=== PATIENT | female | born 1980 | race Caucasian/White ===

== ENCOUNTER 2016-08-09 13:05 | Emergency (ER) | payer BC ==
[2016-08-09 13:40] VITALS: BP 105/73
--- NOTE | 2016-08-09 14:12 | UC ---
Throat Pain/Nasal Juan HPI - HPI Summary HPI Summary: Nasal congestion, diffuse sinus pain, R ear pain worsening through last night, elevated temperature starting 2 days ago. 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 Has school-aged kids at home. - History of Current Complaint Chief Complaint: UCGeneralIllness Stated Complaint: SINUS AND EAR PAIN Time Seen by Provider: 08/09/16 13:46 Hx Obtained From: Patient Hx Last Menstrual Period: 08/06/16 ?: No Onset/Duration: Gradual Onset, Lasting Days Severity: Moderate Associated Signs & Symptoms: Positive: Sinus Discomfort, Nasal Discharge, Fever. Negative: Wheezing, Hoarseness - Allergies/Home Medications Allergies/Adverse Reactions: Allergies Allergy/AdvReac Type Severity Reaction Status Date / Time Amoxicillin Allergy Intermediate Rash And Verified 08/09/16 13:41 Itching Home Medications: Home Medications Ginkgo Biloba (NF) [Ginkgo Biloba Extract (NF)] 1 tab PO DAILY 08/09/16 [ History Confirmed 08/09/16] PMH/Surg Hx/FS Hx/Imm Hx - Surgical History Surgical History: None - Family History Known Family History: Negative: Blood Disorder - Social History Occupation: Employed Full-time Lives: With Family Alcohol Use: Occasionally Substance Use Type: None Smoking Status (MU): Light Every Day Tobacco Smoker Type: Cigarettes Amount Used/How Often: 10 cig. day - Immunization History Most Recent Influenza Vaccination: 03/2016 Review of Systems Constitutional: Fever, Chills, Fatigue Skin: Negative Eyes: Negative ENT: Sore Throat, Ear Ache, Nasal Discharge Respiratory: Negative Cardiovascular: Negative Gastrointestinal: Negative Genitourinary: Negative Motor: Negative Neurovascular: Negative Musculoskeletal: Negative Neurological: Negative Psychological: Negative All Other Systems Reviewed And Are Negative: Yes Physical Exam Triage Information Reviewed: Yes Appearance: Well-Appearing, No Pain Distress, Well-Nourished Vital Signs: Initial Vital Signs Temp 100.7 F 08/09/16 13:34 Pulse 77 08/09/16 13:34 Resp 16 08/09/16 13:34 BP 105/73 08/09/16 13:34 Pulse Ox 99 08/09/16 13:34 Vital Signs Reviewed: Yes Eye Exam: Normal Eyes: Positive: Conjunctiva Clear ENT: Positive: Pharyngeal erythema - slight, Nasal congestion, TMs normal - clear fluid with bubbles noted behind R TM. Negative: TM bulging, TM dull, TM red, Tonsillar exudate Dental Exam: Normal Dental: Negative: Percussion Tenderness @, Gross Decay/Caries @, Dental Fracture @, Abscess @ Neck exam: Normal Neck: Positive: Supple, Nontender Respiratory Exam: Normal Respiratory: Positive: Chest non-tender, Lungs clear, Normal breath sounds, No respiratory distress, No accessory muscle use Cardiovascular Exam: Normal Cardiovascular: Positive: RRR, No Murmur Musculoskeletal Exam: Normal Neurological Exam: Normal Psychological Exam: Normal Skin Exam: Normal Throat Pain/Nasal Course/Dx - Differential Dx/Diagnosis Provider Diagnoses: URI, likely viral. R otalgia Discharge - Discharge Plan Condition: Stable Disposition: HOME Patient Education Materials: Upper Respiratory Infection (ED) Forms: *Work Release Referrals: Nohemi Mora NP [Primary Care Provider] - Additional Instructions: Rapid strep negative. As we discussed, your ear showed fluid, which is a common symptom with respiratory viruses and only resolves with time. There is absolutely no indication of bacterial infection, so antibiotics would only have the potential to make you sicker. Bacterial sinusitis is uncommon, and with such diffuse symptoms we would only start to consider it after 7-10 days of illness. Influenza is a likely cause of your symptoms (given your fever), so it is very important you not go back to work until you are fever-free without medications. Call or return if you develop increasing fever, shortness of breath, chest pain , bloody sputum, or otherwise worsen. If you have not improved at all after several days, contact your primary care physician or return here.
== END 2016-08-09 14:54 | disposition home or self-care (01) ==
LOC: UCEAST 13:05
DX: J06.9 Acute upper respiratory infection, unspecified (principal); H92.01 Otalgia, right ear; Z88.0 Allergy status to penicillin; F17.210 Nicotine dependence, cigarettes, uncomplicated
CPT/HCPCS: 87502; 87651; 99211; G0463

== ENCOUNTER 2016-10-05 04:53 | Emergency (ER) | payer BC ==
[2016-10-05] MEDS ORDERED: Penicillin VK TAB* 250 MG PO ONE (05:17)
[2016-10-05] MEDS ORDERED: Ibuprofen TAB* 400 MG PO ONE (05:19)
[2016-10-05 05:30] VITALS: BP 102/70
--- NOTE | 2016-10-13 21:53 | ED ---
Myrna Estrella Claudia, scribed for Lisa Mathew MD on 10/05/16 at 0525 . Throat Pain/Nasal Congestion - HPI Summary HPI Summary: 35 year old female presents to the Ed with dental pain. Pt notes that she has been taking left over penicillin for the infection until she is able to see the dentist on Saturday. The pt notes that the pain is alleviated with Motrin. She denies any other Sx including fever and chills. - History of Current Complaint Chief Complaint: EDDentalPain Time Seen by Provider: 10/05/16 05:08 Hx Obtained From: Patient Onset/Duration: Sudden Onset, Lasting Hours, Still Present - Allergies/Home Medications Allergies/Adverse Reactions: Allergies Allergy/AdvReac Type Severity Reaction Status Date / Time No Known Allergies Allergy Verified 10/07/16 07:55 PMH/Surg Hx/FS Hx/Imm Hx Previously Healthy: Yes Endocrine/Hematology History: Denies: Hx Diabetes Infectious Disease History: No Infectious Disease History: Denies: History Other Infectious Disease, Traveled Outside the in Last 30 Days - Family History Known Family History: Positive: Hypertension Negative: Blood Disorder - Social History Occupation: Employed Full-time Lives: With Family Alcohol Use: Occasionally Substance Use Type: Reports: None Smoking Status (MU): Light Every Day Tobacco Smoker Type: Cigarettes Amount Used/How Often: 10 cig. day Review of Systems Constitutional: Negative Negative: Fever, Chills Eyes: Negative Positive: Dental Pain - right lower tooth Cardiovascular: Negative Respiratory: Negative Gastrointestinal: Negative Genitourinary: Negative Musculoskeletal: Negative Skin: Negative Neurological: Negative Psychological: Normal All Other Systems Reviewed And Are Negative: Yes Physical Exam Triage Information Reviewed: Yes Vital Signs On Initial Exam: Initial Vitals Temp Pulse Resp BP Pulse Ox 97.5 F 95 18 111/71 100 10/05/16 04:56 10/05/16 04:56 10/05/16 04:56 10/05/16 04:56 10/05/16 04:56 Vital Signs Reviewed: Yes Appearance: Positive: Well-Appearing, No Pain Distress Skin: Positive: Warm, Skin Color Reflects Adequate Perfusion, Dry Eyes: Positive: EOMI, MAHAMED ENT: Positive: Pharynx normal, TMs normal Dental: Positive: Other - mild mucal swelling over tooth numbr 20. Neck: Positive: Supple, Nontender Respiratory/Lung Sounds: Positive: Clear to Auscultation, Breath Sounds Present. Negative: Rales, Rhonchi, Wheezes Cardiovascular: Positive: RRR. Negative: Murmur, Leg Edema Left, Leg Edema Right Abdomen Description: Positive: Nontender, Soft Musculoskeletal: Positive: Strength/ROM Intact Neurological: Positive: Sensory/Motor Intact, Alert, Oriented to Person Place, Time, CN Intact II-III Psychiatric: Positive: Affect/Mood Appropriate Diagnostics - Vital Signs Vital Signs Temp Pulse Resp BP Pulse Ox 10/05/16 04:56 97.5 F 95 18 111/71 100 - Laboratory Lab Statement: Any lab studies that have been ordered have been reviewed, and results considered in the medical decision making process. EENT Course/Dx - Diagnoses Provider Diagnoses: Pain, dental Discharge - Discharge Plan Condition: Stable Disposition: HOME Patient Education Materials: Toothache (ED) Forms: *Work Release Referrals: Nhoemi Mora NP [Primary Care Provider] - Additional Instructions: Please follow-up with your Dentist on Saturday The documentation as recorded by the Myrna thomas Claudia accurately reflects the service I personally performed and the decisions made by me, Lisa Mathew MD.
== END 2016-10-05 05:29 | disposition home or self-care (01) ==
LOC: ED 04:53
DX: K08.89 Other specified disorders of teeth and supporting structures (principal); F17.210 Nicotine dependence, cigarettes, uncomplicated
CPT/HCPCS: 99282; A9270-GY

== ENCOUNTER 2016-10-07 07:08 | Emergency (ER) | payer BC ==
[2016-10-07 07:16] VITALS: BP 117/90
[2016-10-07] MEDS ORDERED: Clindamycin CAP* 150 MG PO ONE (07:47)
--- NOTE | 2016-10-07 08:07 | ED ---
Throat Pain/Nasal Congestion - HPI Summary HPI Summary: Pt here w/ continued dental pain, jaw pain radiating into ear and gingival swelling around #30. Was seen 2 days ago regarding this same tooth and pain. Pain started Saturday - she called her dentist Saturday but unfortunately they were closed until Saturday (tomorrow). She was seen here Saturday after taking some Pen VK she had leftover at home w/o relief. Was found to have swelling about her tooth and provided with more Pen VK. Ibuprofen 800mg helps pain however she' s been nervous about taking so much of this. Drinking lots of water - no eating much as chewing hurts when tooth comes against pressure. She's had work done on this tooth in the past - has amalgom in place. Would like to switch anbx - does not want medication nor injection for pain. Denies fever, chills, N/V/D, trouble breathing/swallowing, foul taste in her mouth, facial swelling. - History of Current Complaint Chief Complaint: EDDentalPain Time Seen by Provider: 10/07/16 07:30 Hx Obtained From: Patient - Allergies/Home Medications Allergies/Adverse Reactions: Allergies Allergy/AdvReac Type Severity Reaction Status Date / Time No Known Allergies Allergy Verified 10/07/16 07:55 PMH/Surg Hx/FS Hx/Imm Hx Previously Healthy: No - dental pain in #30 Endocrine/Hematology History: Denies: Autoimmune Disease Infectious Disease History: No Infectious Disease History: Denies: Hx Clostridium Difficile, History Other Infectious Disease, Traveled Outside the [place] in Last 30 Days - Family History Known Family History: Positive: None Negative: Blood Disorder - Social History Occupation: Employed Part-time, Student - nursing Lives: With Family Alcohol Use: None Hx Substance Use: No Substance Use Type: Reports: None Smoking Status (MU): Current Every Day Smoker Type: Cigarettes Amount Used/How Often: 10 cig. day Review of Systems Negative: Fever, Chills Positive: Dental Pain, Ear Ache. Negative: Sore Throat, Nasal Discharge Negative: Chest Pain Negative: Shortness Of Breath, Cough Gastrointestinal: Negative Positive: no symptoms reported Musculoskeletal: Other - jaw pain - no pain w/ depression or elevation of mandible Negative: Rash Neurological: Negative Psychological: Normal All Other Systems Reviewed And Are Negative: Yes Physical Exam Triage Information Reviewed: Yes Vital Signs On Initial Exam: Initial Vitals Temp Pulse Resp BP Pulse Ox 97 F 92 15 117/90 100 10/07/16 07:11 10/07/16 07:11 10/07/16 07:11 10/07/16 07:11 10/07/16 07:11 Vital Signs Reviewed: Yes Appearance: Positive: Well-Appearing, No Pain Distress, Well-Nourished Skin: Positive: Warm, Dry - no facial edema/erythema Head/Face: Positive: Normal Head/Face Inspection - NTTP Eyes: Positive: Normal, EOMI, Conjunctiva Clear. Negative: Conjunctiva Inflammed, Discharge ENT: Positive: Normal ENT inspection, Hearing grossly normal, Pharynx normal, TMs normal. Negative: Nasal congestion, Nasal drainage Dental: Positive: Other - #30 majority amalgom filled - mild gingival erythema and edema along the buccal aspect which is TTP - no fluctuance, no pustules, no d/c Neck: Positive: Supple, No Lymphadenopathy, Tenderness @ - Rt side of neck w/ mild TTP Respiratory/Lung Sounds: Positive: Clear to Auscultation, Breath Sounds Present , Stridor Cardiovascular: Positive: Normal, RRR Abdomen Description: Positive: Soft Musculoskeletal: Positive: Normal, Strength/ROM Intact Neurological: Positive: Normal, Sensory/Motor Intact, Alert, Oriented to Person Place, Time, CN Intact II-III Psychiatric: Positive: Normal Diagnostics - Vital Signs Vital Signs Temp Pulse Resp BP Pulse Ox 10/07/16 07:11 97 F 92 15 117/90 100 - Laboratory Lab Statement: Any lab studies that have been ordered have been reviewed, and results considered in the medical decision making process. EENT Course/Dx - Course Course Of Treatment: Dental pain and swelling w/o improvement since taking PCN for 4 days. Would like to switch to a different anbx as she's not sure when she will be able to get in to see her dentist. Switched to clindamycin and advised to f/u w/ dentist as planned. Return if danger s/sx present. - Diagnoses Provider Diagnoses: Dental abscess Discharge - Discharge Plan Condition: Stable Disposition: HOME Prescriptions: Clindamycin CAP* [Cleocin 150 MG CAP*] 300 mg PO QID #39 cap Patient Education Materials: Dental Abscess (ED) Referrals: Nohemi Mora NP [Primary Care Provider] - Additional Instructions: Stop penicillin Start clindamycin Continue ibuprofen with food for pain Try to get nutrition through broth, smoothies, etc Follow-up with dentist tomorrow *If you develop fever, chills, vomiting, facial swelling or difficulty breathing or swallowing, return to ED
== END 2016-10-07 08:08 | disposition home or self-care (01) ==
LOC: ED 07:08
DX: K04.7 Periapical abscess without sinus (principal); K08.89 Other specified disorders of teeth and supporting structures; H92.09 Otalgia, unspecified ear; F17.210 Nicotine dependence, cigarettes, uncomplicated
CPT/HCPCS: 99281; A9270-GY

== ENCOUNTER 2016-11-02 21:55 | Emergency (ER) | payer BC ==
[2016-11-03 00:03] VITALS: BP 103/68
--- NOTE | 2017-01-04 09:23 | ED ---
Skin Complaint - HPI Summary HPI Summary: Patient suffered a tick bite 2 weeks ago and the area is hard and painful. She has been on antibiotics for dental infection. No drainage, swelling or red streaking. - History of Current Complaint Chief Complaint: EDRashSkinAbscess Time Seen by Provider: 11/02/16 23:16 Stated Complaint: TICK BITE Hx Obtained From: Patient Hx Last Menstrual Period: 08/06/16 Onset/Duration: Started Weeks Ago - 2, Traumatic, Still Present Timing: Constant Onset Severity: Mild Current Severity: Mild Pain Intensity: 0 Pain Scale Used: 0-10 Numeric Skin Location: Discrete - right abdomen Character: Redness - mild Aggravating Symptom(s): Nothing Alleviating Symptom(s): Nothing Associated Signs & Symptoms: Tenderness Related History: Possible Reaction to: Insect - tick - Allergy/Home Medications Allergies/Adverse Reactions: Allergies Allergy/AdvReac Type Severity Reaction Status Date / Time No Known Allergies Allergy Verified 10/07/16 07:55 PMH/Surg Hx/FS Hx/Imm Hx Previously Healthy: Yes Infectious Disease History: No Infectious Disease History: Denies: Hx Clostridium Difficile, History Other Infectious Disease, Traveled Outside the in Last 30 Days - Family History Known Family History: Positive: None Negative: Blood Disorder - Social History Occupation: Employed Full-time Lives: With Family Alcohol Use: None Hx Substance Use: No Substance Use Type: Reports: None Smoking Status (MU): Current Every Day Smoker Type: Cigarettes Amount Used/How Often: 10 cig. day Cessation Counseling: Patient Advised to Stop Review of Systems Negative: Fever, Chills Positive: Other - dime size area of erythema All Other Systems Reviewed And Are Negative: Yes Physical Exam Triage Information Reviewed: Yes Vital Signs On Initial Exam: Initial Vitals Temp Pulse Resp BP Pulse Ox 97.7 F 87 18 111/60 100 11/02/16 22:01 11/02/16 22:01 11/02/16 22:01 11/02/16 22:01 11/02/16 22:01 Vital Signs Reviewed: Yes Appearance: Positive: Well-Appearing, Well-Nourished, Pain Distress - mild Skin: Positive: Warm, Skin Color Reflects Adequate Perfusion, Dry, Tender, Soft , Erythema @ - dime size area of erythema on right abdomen without target lesion Head/Face: Positive: Normal Head/Face Inspection Eyes: Positive: EOMI, MAHAMED, Conjunctiva Clear ENT: Positive: Hearing grossly normal, Pharynx normal Neck: Positive: Supple, Nontender, No Lymphadenopathy Respiratory/Lung Sounds: Positive: Breath Sounds Present Cardiovascular: Positive: RRR Abdomen Description: Positive: Nontender, Soft Musculoskeletal: Negative: Edema Left, Edema Right Neurological: Positive: Sensory/Motor Intact, Alert, Oriented to Person Place, Time, [place] Bundle Intact Distally, Normal Gait Psychiatric: Positive: Affect/Mood Appropriate AVPU Assessment: Alert Diagnostics - Vital Signs Vital Signs Temp Pulse Resp BP Pulse Ox 11/03/16 00:03 62 19 103/68 99 11/02/16 23:25 98.0 F 72 18 109/79 100 11/02/16 22:01 97.7 F 87 18 111/60 100 - Laboratory Lab Statement: Any lab studies that have been ordered have been reviewed, and results considered in the medical decision making process. Course/Dx - Differential Diagnoses - Skin Complaint Differential Diagnoses: Abscess, Allergic Reaction, Contact Dermatitis, Drug Rash, Foreign Body, MRSA, Scabies, Tick Born Illness, Urticaria - Diagnoses Provider Diagnoses: Local reaction to insect sting Discharge - Discharge Plan Condition: Stable Disposition: HOME Patient Education Materials: Insect Bite or Sting (ED) Referrals: Nohemi Mora NP [Primary Care Provider] - Additional Instructions: Please use the triple antibiotic with a bandaid for a few days and then leave area open to air. Follow-up with your primary care provider if symptoms persist. Return to the emergency department if symptoms worsen.
== END 2016-11-03 00:09 | disposition home or self-care (01) ==
LOC: ED 21:55
DX: S30.861A Insect bite (nonvenomous) of abdominal wall, initial encounter (principal); W57.XXXA Bitten or stung by nonvenomous insect and other nonvenomous arthropods, initial encounter; Y93.9 Activity, unspecified; Y92.9 Unspecified place or not applicable; F17.210 Nicotine dependence, cigarettes, uncomplicated
CPT/HCPCS: 99281

== ENCOUNTER 2016-11-05 15:25 | Emergency (ER) | payer BC ==
[2016-11-05 15:30] VITALS: BP 105/68
--- NOTE | 2016-11-05 16:58 | ED ---
Skin Complaint - HPI Summary HPI Summary: Patient was bitten by a tick on her right elbow, pt removed the tick herself over 1 week ago and was on keflex for dental work so she continued to take keflex. Patient did not seek medical care for tick bite. patient noticed a circular red rash to the left of where she was bitten by a tick. Today she is requesting lyme testing. It was explained to patient that she should have not taken any antibiotics at the time d/t short duration of attachment and since she removed the tick immediately. She was also educated on lyme disease, tick bite and prophylactic treatment. She denies previous known diagnosis of lyme disease. She denies arthralgias, KAY, visual disturbances or any new symptoms. She is otherwise healthy. - History of Current Complaint Chief Complaint: EDAnimalBite Time Seen by Provider: 11/05/16 15:53 Stated Complaint: TICK BITE Hx Obtained From: Patient Hx Last Menstrual Period: 08/06/16 Onset/Duration: Started Hours Ago Skin Exposure Onset/Duration: Weeks Ago Timing: Constant Onset Severity: Mild Current Severity: Mild Pain Intensity: 0 Pain Scale Used: 0-10 Numeric Skin Location: Arm Character: Redness, Raised, Painful Aggravating Symptom(s): Nothing Alleviating Symptom(s): Nothing Associated Signs & Symptoms: Negative Related History: Possible Reaction to: Insect - Allergy/Home Medications Allergies/Adverse Reactions: Allergies Allergy/AdvReac Type Severity Reaction Status Date / Time No Known Allergies Allergy Verified 10/07/16 07:55 PMH/Surg Hx/FS Hx/Imm Hx Previously Healthy: Yes - Immunization History Hx Pertussis Vaccination: No Immunizations Up to Date: No Infectious Disease History: No Infectious Disease History: Denies: Hx Clostridium Difficile, History Other Infectious Disease, Traveled Outside the [place] in Last 30 Days - Family History Known Family History: Positive: None Negative: Blood Disorder - Social History Occupation: Employed Full-time Lives: With Family Alcohol Use: None Hx Substance Use: No Substance Use Type: Reports: None Hx Tobacco Use: Yes Smoking Status (MU): Current Every Day Smoker Type: Cigarettes Amount Used/How Often: 10 cig. day Review of Systems Constitutional: Negative Eyes: Negative ENT: Negative Cardiovascular: Negative Respiratory: Negative Positive: no symptoms reported, see HPI Musculoskeletal: Negative Positive: Other - small erythematous Neurological: Negative Psychological: Normal All Other Systems Reviewed And Are Negative: Yes Physical Exam Triage Information Reviewed: Yes Vital Signs On Initial Exam: Initial Vitals Temp Pulse Resp BP Pulse Ox 98.2 F 89 16 105/68 99 11/05/16 15:25 11/05/16 15:25 11/05/16 15:25 11/05/16 15:25 11/05/16 15:25 Vital Signs Reviewed: Yes Appearance: Positive: Well-Appearing, No Pain Distress, Well-Nourished Skin: Positive: Warm, Skin Color Reflects Adequate Perfusion, Other - erythematous non prurutic .5cm x .5cm raised nodule to the inner forearm inferior to the elbow with a non pruritic salmon colored macule 1 inch to the medial side of the raised nodule Head/Face: Positive: Normal Head/Face Inspection Eyes: Positive: EOMI, MAHAMED, Conjunctiva Clear Neck: Positive: Supple, No Lymphadenopathy Respiratory/Lung Sounds: Positive: Clear to Auscultation, Breath Sounds Present Cardiovascular: Positive: Normal, RRR, Pulses are Symmetrical in both Upper and Lower Extremities Musculoskeletal: Positive: Normal, Strength/ROM Intact Neurological: Positive: Normal, Sensory/Motor Intact, Alert, Oriented to Person Place, Time Psychiatric: Positive: Normal Diagnostics - Vital Signs Vital Signs Temp Pulse Resp BP Pulse Ox 11/05/16 16:11 98.2 F 89 16 105/68 99 11/05/16 15:25 98.2 F 89 16 105/68 99 - Laboratory Lab Statement: Any lab studies that have been ordered have been reviewed, and results considered in the medical decision making process. Course/Dx - Course Course Of Treatment: Patient arrives today with a request for Lyme serology. There is an erythematous non prurutic .5cm x .5cm raised nodule to the inner forearm inferior to the elbow with a non pruritic salmon colored macule 1 inch to the medial side of the raised nodule. Tick bite occurred 2 weeks ago and she effectively pulled the tick out immediately after the tick attached. She states she was on Keflex and figured this would be enough instead of getting a rx for doxycyline. Lyme disease, tick bites and prophylaxis against Lyme explained in detail to the patient. While she requests doxycycline now, provider explained this is not protocol and would not prevent her from having Lyme since it has been over 72 hours and she is having no symptoms of Lyme, and tick was not attached for more than 36 hours. Serology Lyme sent to the lab and will call her when results are back. She is nervous to wait, but agrees to proceed without the doxycycline. She does not have an EM rash but is concerned the salmon colored macule is the EM rash. Providers Gloria Smith PA-C and Richard Steve MD both looked at the rash and agreed it looks as if it is a local reaction to the tick bite and NOT the classic EM rash. - Differential Diagnoses - Skin Complaint Differential Diagnoses: Local Allergic Reaction, Systemic Illness, Tick Born Illness - Diagnoses Provider Diagnoses: Tick bite Discharge - Discharge Plan Condition: Stable Disposition: HOME Patient Education Materials: Lyme Disease (ED), Tick Bite (ED) Referrals: Noheim Mora NP [Primary Care Provider] - Additional Instructions: Approach to prophylaxis : According to the Infectious Diseases Society of [place] (IDSA) guidelines that recommend antibiotic prophylaxis only in patients who meet all of the following criteria: 1. Attached tick identified as an adult or nymphal I. scapularis tick (deer tick). 2. Tick is estimated to have been attached for 36 hours (by degree of engorgement or time of exposure). 3. Prophylaxis is begun within 72 hours of tick removal. Local rate of infection of ticks with B. burgdorferi is 20 percent if attached for over 48 hours (these rates of infection have been shown to occur in parts of [place], parts of the [facility], and parts of [place] and [place]). If you experience a tick and time of attachment is believed to be less than 36 hours, you may remove the tick with head intact and no need for prophylaxis. If over 36 hours, please come into UC. Prophylactic doxycycline is not recommended for ticks attached less than 36 hours. Follow up with your PCP about the second lyme test. If you develop any symptoms, go see your PCP or come back to ED right away.
== END 2016-11-05 17:34 | disposition home or self-care (01) ==
LOC: ED 15:25
DX: S50.361A Insect bite (nonvenomous) of right elbow, initial encounter (principal); W57.XXXA Bitten or stung by nonvenomous insect and other nonvenomous arthropods, initial encounter; Y93.9 Activity, unspecified; Y92.9 Unspecified place or not applicable; Y99.9 Unspecified external cause status; F17.210 Nicotine dependence, cigarettes, uncomplicated
CPT/HCPCS: 86618; 99281

== ENCOUNTER 2017-06-05 15:24 | Emergency (ER) | payer BC ==
[2017-06-05 15:31] VITALS: BP 114/70
[2017-06-05] MEDS ORDERED: Dexamethasone IV* 10 MG in NS 0.9% 50 ML* 50 ML IVPB ONE (16:33)
[2017-06-05] MEDS ORDERED: Amoxicillin/Clavulanate TAB* 875 MG PO ONE (16:33)
--- NOTE | 2017-06-05 16:46 | UC ---
Throat Pain/Nasal Juan HPI - HPI Summary HPI Summary: 36 year old female with no significant pmhx here with fever, headache, congestion and cough. Patient reports symptoms started about 2 days ago with fever and cough. She has been taking tylenol for fever. Reports headache and congestion with continuous discharge from the cough. Productive cough with green sputum. No cp, sob or any other complaints. Today developed hoarseness prompting her to come to the . No n/v/change in vision/photophobia or any other complaints. Of note, everyone at the house has similar symptoms. - History of Current Complaint Chief Complaint: UCRespiratory Stated Complaint: SINUS COMPLAINT Time Seen by Provider: 06/05/17 16:15 Hx Obtained From: Patient Hx Last Menstrual Period: 2-3 wks ago Onset/Duration: Gradual Onset Severity: Mild Cough: Productive Associated Signs & Symptoms: Positive: Hoarseness, Sinus Discomfort, Nasal Discharge, Fever - Allergies/Home Medications Allergies/Adverse Reactions: Allergies Allergy/AdvReac Type Severity Reaction Status Date / Time No Known Allergies Allergy Verified 06/05/17 15:32 Home Medications: Home Medications [id number] W/ APAP [Tylenol Cold Multi-Sy... [id number] mg/15Ml] 1 dose PO ONCE 06/05/17 [History Confirmed 06/05/17] PMH/Surg Hx/FS Hx/Imm Hx - Surgical History Surgical History: None - Family History Known Family History: Positive: None Negative: Blood Disorder - Social History Alcohol Use: None Substance Use Type: None Smoking Status (MU): Current Every Day Smoker Type: Cigarettes Amount Used/How Often: 10 cig. day - Immunization History Most Recent Influenza Vaccination: 03/2016 Review of Systems Constitutional: Negative, Fever Skin: Negative Eyes: Negative ENT: Negative, Sore Throat, Nasal Discharge, Sinus Congestion, Sinus Pain/ Tenderness Respiratory: Negative Cardiovascular: Negative Gastrointestinal: Negative Genitourinary: Negative Motor: Negative Neurovascular: Negative Musculoskeletal: Negative Neurological: Negative, Headache Psychological: Negative All Other Systems Reviewed And Are Negative: Yes Physical Exam Triage Information Reviewed: Yes Appearance: Well-Appearing, No Pain Distress, Well-Nourished Vital Signs: Initial Vital Signs Temp 37.0 C 06/05/17 15:29 Pulse 117 06/05/17 15:29 Resp 18 06/05/17 15:29 BP 114/70 06/05/17 15:29 Pulse Ox 100 06/05/17 15:29 ENT: Positive: Nasal congestion, Nasal drainage, Hoarse voice, Sinus tenderness Neck: Positive: Supple, Nontender, No Lymphadenopathy Respiratory: Positive: Normal breath sounds, No respiratory distress, No accessory muscle use Cardiovascular: Positive: RRR, Tachycardia Abdomen Description: Positive: Nontender, Soft Throat Pain/Nasal Course/Dx - Course Course Of Treatment: URI symptoms with laryngitis c/b sinusitis - Differential Dx/Diagnosis Differential Diagnosis/HQI/PQRI: Laryngitis, Pharyngitis, Sinusitis Provider Diagnoses: Sinusitis Discharge - Discharge Plan Condition: Good Disposition: HOME Patient Education Materials: Laryngitis (ED), Rhinosinusitis (ED) Forms: *Work Release Referrals: Nohemi Mora NP [Primary Care Provider] -
[2017-06-05] MEDS ORDERED: Dexamethasone TAB* 4 MG PO ONE (16:50)
[2017-06-05] MEDS ORDERED: Dexamethasone TAB* 4 MG ONE (16:51)
== END 2017-06-05 17:21 | disposition home or self-care (01) ==
LOC: UCEAST 15:24
DX: J32.9 Chronic sinusitis, unspecified (principal); R50.9 Fever, unspecified; F17.210 Nicotine dependence, cigarettes, uncomplicated
CPT/HCPCS: 99212; A9270-GY; G0463; J1100; J8540

== ENCOUNTER 2018-03-08 20:19 | Emergency (ER) | payer BC ==
[2018-03-08 20:44] VITALS: BP 144/72
[2018-03-08] MEDS ORDERED: Sulfamethox/Trimethoprim DS 800/160* TAB PO ONE (21:49)
[2018-03-08] MEDS ORDERED: Phenazopyridine TAB* 100 MG PO ONE (21:49)
--- NOTE | 2018-03-08 22:04 | UC ---
Complaint Female HPI - HPI Summary HPI Summary: 2 days of dysuria, urinary frequency and urgency. Started with hematuria today. Has mild low back pain but no fever or nausea. - History Of Current Complaint Chief Complaint: UCGU Stated Complaint: POSS UTI Time Seen by Provider: 03/08/18 21:40 Hx Obtained From: Patient Hx Last Menstrual Period: 2 wks ago Onset/Duration: Gradual Onset, Lasting Days, Still Present Severity Initially: Moderate Severity Currently: Moderate Pain Intensity: 0 Pain Scale Used: 0-10 Numeric Character: Burning Aggravating Factor(s): Urination Alleviating Factor(s): Nothing Associated Signs And Symptoms: Positive: Back Pain. Negative: Fever, Vaginal Bleeding/Discharge, Vaginal Discharge, Nausea - Allergies/Home Medications Allergies/Adverse Reactions: Allergies Allergy/AdvReac Type Severity Reaction Status Date / Time amoxicillin Allergy Hives Verified 03/08/18 20:45 PMH/Surg Hx/FS Hx/Imm Hx Previously Healthy: Yes - Surgical History Surgical History: None - Family History Known Family History: Positive: None Negative: Blood Disorder - Social History Alcohol Use: Rare Substance Use Type: None Smoking Status (MU): Former Smoker Type: Cigarettes Amount Used/How Often: 10 cig. day - Immunization History Most Recent Influenza Vaccination: 03/2016 Review of Systems Constitutional: Negative Respiratory: Negative Cardiovascular: Negative Gastrointestinal: Abdominal Pain Genitourinary: Dysuria, Hematuria, Frequency, Urgency All Other Systems Reviewed And Are Negative: Yes Physical Exam Triage Information Reviewed: Yes Appearance: Well-Appearing, No Pain Distress, Well-Nourished Vital Signs: Initial Vital Signs Temp 98.7 F 03/08/18 20:41 Pulse 89 03/08/18 20:41 Resp 12 03/08/18 20:41 BP 144/72 03/08/18 20:41 Pulse Ox 100 03/08/18 20:41 Laboratory Tests 03/08/18 03/08/18 21:13 21:16 POC Urine Color Red A POC Urine Clarity Clear POC Urine pH 6.0 POC Ur Specif Ladd 1.025 POC Urine Protein 3+ A POC Ur Glucose (UA) Trace A POC Urine Ketones 1+ A POC Urine Blood 3+ A POC Urine Nitrite Positive A POC Urine Bilirubin 1+ A POC Urine Urobilinogen 1.0 POC U Leukocyte Esteras 1+ A POC Ur Test Negative Vital Signs Reviewed: Yes Eyes: Positive: Conjunctiva Clear ENT: Positive: Hearing grossly normal Neck: Positive: Supple Respiratory: Positive: No respiratory distress, No accessory muscle use Cardiovascular: Positive: Pulses Normal Abdomen Description: Positive: Soft, Other: - SUPRAPUBIC TTP. Negative: CVA Tenderness (R), CVA Tenderness (L), Distended, Guarding Musculoskeletal: Positive: No Edema Neurological: Positive: Alert Psychological: Positive: Age Appropriate Behavior Skin: Negative: rashes Complaint Female Dx - Differential Dx/Diagnosis Provider Diagnoses: UTI Discharge - Sign-Out/Discharge Documenting (check all that apply): Patient Departure All imaging exams completed and their final reports reviewed: No Studies - Discharge Plan Condition: Stable Disposition: HOME Prescriptions: Fluconazole 150 MG (NF) [Diflucan 150 mg (NF)] 150 mg PO ONCE #2 tab Phenazopyridine TAB* [Pyridium TAB*] 200 mg PO TID #6 tab Sulfamethox/Trimethoprim DS* [Bactrim DS 800/160 TAB*] 1 tab PO BID #9 tab Patient Education Materials: Urinary Tract Infection in Women (ED) Referrals: Gabe Stevenson MD [Primary Care Provider] - If Needed Additional Instructions: YOUR URINE WILL BE SENT FOR CULTURE TO ENSURE THAT THE ANTIBIOTIC YOU'RE TAKING COVERS THE BACTERIA YOU'RE GROWING. WE WILL CALL YOU IF YOUR MANAGEMENT NEEDS TO BE CHANGED. STAY WELL HYDRATED. - Billing Disposition and Condition Condition: STABLE Disposition: Home
--- NOTE | 2018-03-10 16:07 | UC ---
- Progress Note Progress Note: 03/10/2018 Urine culture positive for E.Coli. Pt Rx Bactrim PO Awaiting for final sensitivity report No change Jackelyn Landa PA-C Discharge - Sign-Out/Discharge Documenting (check all that apply): Patient Departure - D/c home All imaging exams completed and their final reports reviewed: No Studies - Discharge Plan Condition: Stable Disposition: HOME Prescriptions: Fluconazole 150 MG (NF) [Diflucan 150 mg (NF)] 150 mg PO ONCE #2 tab Phenazopyridine TAB* [Pyridium TAB*] 200 mg PO TID #6 tab Sulfamethox/Trimethoprim DS* [Bactrim DS 800/160 TAB*] 1 tab PO BID #9 tab Patient Education Materials: Urinary Tract Infection in Women (ED) Referrals: Gabe Stevenson MD [Primary Care Provider] - If Needed Additional Instructions: YOUR URINE WILL BE SENT FOR CULTURE TO ENSURE THAT THE ANTIBIOTIC YOU'RE TAKING COVERS THE BACTERIA YOU'RE GROWING. WE WILL CALL YOU IF YOUR MANAGEMENT NEEDS TO BE CHANGED. STAY WELL HYDRATED. - Billing Disposition and Condition Condition: STABLE Disposition: Home
--- NOTE | 2018-03-11 19:47 | UC ---
- Progress Note Progress Note: + E. coli sensitive to Bactrim no change [facility] [place] 03/11 Discharge - Sign-Out/Discharge Documenting (check all that apply): Post-Discharge Follow Up All imaging exams completed and their final reports reviewed: No Studies - Discharge Plan Condition: Stable Disposition: HOME Prescriptions: Fluconazole 150 MG (NF) [Diflucan 150 mg (NF)] 150 mg PO ONCE #2 tab Phenazopyridine TAB* [Pyridium TAB*] 200 mg PO TID #6 tab Sulfamethox/Trimethoprim DS* [Bactrim DS 800/160 TAB*] 1 tab PO BID #9 tab Patient Education Materials: Urinary Tract Infection in Women (ED) Referrals: Gabe Stevenson MD [Primary Care Provider] - If Needed Additional Instructions: YOUR URINE WILL BE SENT FOR CULTURE TO ENSURE THAT THE ANTIBIOTIC YOU'RE TAKING COVERS THE BACTERIA YOU'RE GROWING. WE WILL CALL YOU IF YOUR MANAGEMENT NEEDS TO BE CHANGED. STAY WELL HYDRATED. - Billing Disposition and Condition Condition: STABLE Disposition: Home
== END 2018-03-08 22:00 | disposition home or self-care (01) ==
LOC: UCEAST 20:19
DX: N39.0 Urinary tract infection, site not specified (principal); R31.9 Hematuria, unspecified; Z88.0 Allergy status to penicillin; Z87.891 Personal history of nicotine dependence
CPT/HCPCS: 81003; 84702; 87077; 87086; 87186; 99212; A9270-GY; G0463

== ENCOUNTER 2018-11-07 13:15 | Emergency (ER) | payer BC, OTHER ==
[2018-11-07 13:38] VITALS: BP 114/85
--- NOTE | 2018-11-07 14:11 | ED ---
- HPI Summary HPI Summary: A 37 y/o female presents to [facility] with a chief complaint of puncturing her left index finger with a blunt tip of a syringe. She claims that she never actually touched the patient with the syringe. She claims that she gave the patient 2ccs of IV Versed through IV tubing and then was going to empty the last 3ccs of Versed that she had in the syringe. After emptying the syringe she punctured her left index finger with the blunt tip. Last tetanus was within 10 years. Pt denies any fever, chills, erythema of eyes, sore throat, CP, SOB, cough, abdominal pain, N/V, dysuria, hematuria, myalgia, edema, rash, or dizziness. She reports that the patient has agreed to testing. - History of Current Complaint Chief Complaint: EDExposureBodyFluid Stated Complaint: NEEDLE STICK PER PT Time Seen by Provider: 11/07/18 14:01 Date of Incident: 11/07/18 Time of Incident: 11:00 Mechanism of Injury: puncture herself with syringe Blood on Needle: No PMH/Surg Hx/FS Hx/Imm Hx Sensory History: Denies: Hx Deafness EENT History: Denies: Hx Deafness Infectious Disease History: No Infectious Disease History: Denies: Hx Clostridium Difficile, History Other Infectious Disease, Traveled Outside the [place] in Last 30 Days - Family History Known Family History: Negative: Blood Disorder - Social History Alcohol Use: Rare Hx Substance Use: No Substance Use Type: Reports: None Hx Tobacco Use: Yes Smoking Status (MU): Light Every Day Tobacco Smoker Type: Cigarettes Amount Used/How Often: 10 cig. day Review of Systems Negative: Fever, Chills Negative: Erythema Negative: Sore Throat Negative: Chest Pain Negative: Shortness Of Breath, Cough Negative: Abdominal Pain, Vomiting, Nausea Negative: dysuria, hematuria Negative: Myalgia, Edema Positive: Other - positive: superficial puncture. Negative: Rash Neurological: Negative - dizziness All Other Systems Reviewed And Are Negative: Yes Physical Exam - Summary Physical Exam Summary: Constitutional: Well-developed, Well-nourished, Alert. (-) Distressed Skin: Warm, Dry, 1mm puncture no active bleeding extremely superficial on left index finger HENT: Normocephalic; Atraumatic Eyes: Conjunctiva normal Neck: Musculoskeletal ROM normal neck. (-) JVD, (-) Stridor, (-) Tracheal deviation Cardio: Rhythm regular, rate normal, Heart sounds normal; Intact distal pulses; The pedal pulses are 2+ and symmetric. Radial pulses are 2+ and symmetric. (-) Murmur Pulmonary/Chest wall: Effort normal. (-) Respiratory distress, (-) Wheezes, (-) Rales Abd: Soft, (-) tenderness, (-) Distension, (-) Guarding, (-) Rebound Musculoskeletal: (-) Edema Lymph: (-) Cervical adenopathy Neuro: Alert, Oriented x3 Psych: Mood and affect Normal Triage Information Reviewed: Yes Vital Signs On Initial Exam: Initial Vitals Temp Pulse Resp BP Pulse Ox 97.9 F 80 16 114/85 98 11/07/18 13:36 11/07/18 13:36 11/07/18 13:36 11/07/18 13:36 11/07/18 13:36 Vital Signs Reviewed: Yes Diagnostics - Vital Signs Vital Signs Temp Pulse Resp BP Pulse Ox 11/07/18 13:36 97.9 F 80 16 114/85 98 - Laboratory Lab Statement: Any lab studies that have been ordered have been reviewed, and results considered in the medical decision making process. Needlestick Course/Dx - Course Course Of Treatment: A 37 y/o female presents to [facility] with a chief complaint of puncturing her left index finger with a blunt tip of a syringe. She claims that she never actually touched the patient with the syringe. She claims that she gave the patient 2ccs of IV Versed through IV tubing and then was going to empty the last 3ccs of Versed that she had in the syringe. After emptying the syringe she punctured her left index finger with the blunt tip. Last tetanus was within 10 years. She reports that the patient has agreed to testing. The physical exam revealed a 1mm puncture no active bleeding extremely superficial on left index finger. Pt had no contact with body fluids. Superficial puncture. Empty blunt needle which never made contact with patient. Communical disease approach is 0. Prophylaxis is not indicated. The patient will be discharged and follow up with employee health. The patient is agreeable with this plan. - Diagnoses Provider Diagnoses: Needle stick injury Discharge - Sign-Out/Discharge Documenting (check all that apply): Patient Departure - DC Patient Received Moderate/Deep Sedation with Procedure: No - Discharge Plan Condition: Stable Disposition: HOME Referrals: Gabe Stevenson MD [Primary Care Provider] - (5-7 days) Additional Instructions: Follow up with employee health in 5-7 days. RETURN TO THE EMERGENCY DEPARTMENT FOR CHANGING OR WORSENING SYMPTOMS - Attestation Statements Document Initiated by Scribe: Yes Documenting Scribe: Du Younger Provider For Whom Scribe is Documenting (Include Credential): Richard Steve MD Scribe Attestation: IDu, scribed for Richard Steve MD on 11/07/18 at 1419. Status of Scribe Document: Ready
== END 2018-11-07 14:20 | disposition home or self-care (01) ==
LOC: ED 13:15
DX: S61.231A Puncture wound without foreign body of left index finger without damage to nail, initial encounter (principal); W46.0XXA Contact with hypodermic needle, initial encounter; Y93.F9 Activity, other caregiving; Y99.0 Civilian activity done for income or pay; F17.210 Nicotine dependence, cigarettes, uncomplicated
CPT/HCPCS: 99281